=== PATIENT | female | born 1975 ===

== ENCOUNTER 2022-09-08 20:16 | Emergency (ER) | payer OTHER, SELFPAY ==
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
[2022-09-08 20:28] VITALS: BP 91/67; PULSE 64; RESP 18; TEMP 36.6; O2SAT 99; BMI 33.2
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
[2022-09-08] MEDS: Ibuprofen 800 MG TABLET PO (23:53)
[2022-09-08] MEDS: Cyclobenzaprine HCl 10 MG TABLET PO (23:54)
== END 2022-09-09 00:27 | disposition home or self-care (01) ==
PROVIDERS: Emergency Provider Internal Medicine; PCP Internal Medicine
DX: Z04.1 Encounter for examination and observation following transport accident (principal); R51.9 Headache, unspecified
CPT/HCPCS: 70450; 71046; 72125; 99283; 99284

== ENCOUNTER 2022-09-19 13:57 | Emergency (ER) | payer OTHER, MEDICAID, SELFPAY ==
[2022-09-19 14:11] VITALS: BP 137/77; PULSE 94; RESP 18; TEMP 36.7; O2SAT 99; BMI 36.0
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
== END 2022-09-19 14:22 | disposition home or self-care (01) ==
PROVIDERS: Emergency Provider Emergency Medicine; PCP Internal Medicine
DX: R51.9 Headache, unspecified (principal); S16.1XXA Strain of muscle, fascia and tendon at neck level, initial encounter; X58.XXXA Exposure to other specified factors, initial encounter; Y93.9 Activity, unspecified; Y92.9 Unspecified place or not applicable; Y99.9 Unspecified external cause status; Z79.899 Other long term (current) drug therapy
CPT/HCPCS: 99282; 99283